=== PATIENT | female | born 1990 | race African-American/Black ===

== ENCOUNTER 2017-03-11 15:24 | Outpatient (CLI) ==
[2015-03-09 15:42] VITALS: BMI 43.8
[2017-03-11 16:57] LABS: SERUM PREGNANCY INTERNAL QC INTERNAL QC VALID
== END 2017-03-11 15:25 | disposition home or self-care (01) ==
LOC: LAB 15:24
PROVIDERS: ATTEND Nurse Practitioner Family
DX: R11.2 Nausea with vomiting, unspecified (principal)
CPT/HCPCS: 36415; 84703

== ENCOUNTER 2017-07-23 09:17 | Outpatient (CLI) ==
[2015-03-09 15:42] VITALS: BMI 43.8
--- NOTE | 2017-07-23 09:57 | DI ---
EXAM: Three views of the right shoulder HISTORY: Muscle strain and questionable rotator cuff injury. COMPARISON: None FINDINGS: There is no cortical irregularity or displaced fracture. Glenohumeral joint and acromiocl avicular joint are normal. There is no lytic or blastic lesion. Soft tissues are unremarkable. IMPRESSION: No acute abnormality of the right shoulder.
== END 2017-07-23 09:18 | disposition home or self-care (01) ==
LOC: RAD 09:17
PROVIDERS: ATTEND Nurse Practitioner Family
DX: S46.011A Strain of muscle(s) and tendon(s) of the rotator cuff of right shoulder, initial encounter (principal)

== ENCOUNTER 2017-07-31 07:54 | Outpatient (CLI) ==
[2015-03-09 15:42] VITALS: BMI 43.8
--- NOTE | 2017-07-31 10:53 | MRI ---
EXAM: MRI right shoulder without contrast. HISTORY: Strain of muscle and tendon of the rotator cuff of right shoulder. No right shoulder surge ry reported.. TECHNIQUE: Using a local coil on a high field strength magnet multiplanar multisequence magnet reson ance imaging was performed of the right shoulder without intravenous or intra-articular gadolinium co ntrast. . COMPARISON: Three-view plain film examination right shoulder 08/02/2017. FINDINGS: A Type I I acromion. Coracoacromial ligament/arch intact without definitive thickening. Right acromioclavicular joint within normal limit in appearance. Deltoid musculature normal signal i ntensity. No free fluid subacromial/subdeltoid bursa. Muscle bulk of the rotator cuff shows no overt atrophy or acute muscle strain. Supraspinatus tendino sis. Some involvement more superior insertional infraspinatus tendon fibers. No full-thickness rota tor cuff tear identified. Posterior inferior intact teres minor tendon fibers. Anterior intact subs capularis tendon fibers. The long head of the biceps tendon shows intact fibers located in expected position along the proximal extraarticular bicipital groove. The right humeral head is within normal limit in morphology. Slight posterior subluxation. No right glenohumeral joint centered subchondral bone marrow edema or bone erosions. Physiologic amount flui d right glenohumeral joint. Right glenoid labrum grossly intact on this non-arthrographic examinatio n.. IMPRESSION: Supraspinatus tendinosis. Some involvement more superior insertional infraspinatus tend on. No full-thickness rotator cuff tear identified.
== END 2017-07-31 07:55 | disposition home or self-care (01) ==
LOC: RAD 07:54
PROVIDERS: ATTEND Nurse Practitioner Family
DX: S46.011D Strain of muscle(s) and tendon(s) of the rotator cuff of right shoulder, subsequent encounter (principal)

== ENCOUNTER 2017-08-03 15:53 | Outpatient (CLI) ==
[2015-03-09 15:42] VITALS: BMI 43.8
[2017-08-03 16:23] LABS: FLU INTERNAL QC INTERNAL QC VALID
[2017-08-03 16:24] LABS: RAPID FLU A NEGATIVE (NEGATIVE); RAPID FLU B NEGATIVE (NEGATIVE)
== END 2017-08-03 15:54 | disposition home or self-care (01) ==
LOC: LAB 15:53
PROVIDERS: ATTEND Nurse Practitioner Family
DX: R05 Cough (principal); R52 Pain, unspecified
CPT/HCPCS: 87651; 87804; 87880